=== PATIENT | female | born 1940 | race Caucasian/White ===

== ENCOUNTER 2021-09-11 13:59 | Emergency (ER) | payer MEDICARE, SELFPAY ==
[2021-09-11 14:50] VITALS: BP 107/54; PULSE 85; RESP 18; TEMP 36.1; O2SAT 98; BMI 25.4
--- NOTE | 2021-09-11 15:36 | ECG_ITS ---
Test Reason : WEAKNESS Blood Pressure : / mmHG Vent. Rate : 075 BPM Atrial Rate : 075 BPM P-R Int : 154 ms QRS Dur : 074 ms QT Int : 380 ms P-R-T Axes : 058 054 073 degrees QTc Int : 424 ms Normal sinus rhythm Nonspecific ST abnormality Abnormal ECG Heart rate has increased ST more depressed Lateral leads Referred By: Generic ED Physician Electronically Signed By:BABAR TALLEY MD
[2021-09-11 17:17] LABS: MANUAL DIFF FLAG NO
[2021-09-11 17:19] LABS: Basophils Percent Auto 0.4 % (0-2); Eosinophils Percent Auto 0.3 % (0-4); Hematocrit 42.8 % (37.0-47.0); Hemoglobin 14.9 g/dl (12.0-16.0); Imm Gran Abs Auto 0.04 X10*3/uL (0.00-0.03); Imm Gran Pct Auto 0.4 % (0.0-0.4); Lymphocytes Absolute Auto 2.2 X10*3/uL (1.2-4.9); Lymphocytes Percent Auto 23.8 % (20-40); Mean Corpuscular HGB Conc 34.8 g/dl (31.0-35.0); Mean Corpuscular Hemoglobin 35.1 pg (27.0-33.0); Mean Corpuscular Volume 100.7 fL (80.0-98.0); Mean Platelet Volume 10.6 fL (9.4-12.3); Monocytes Absolute Auto 0.7 X10*3/uL (0.1-1.2); Neutrophils Absolute Auto 6.09 x10*3/uL (2.0-8.3); Neutrophils Percent Auto 67.1 % (45-73); Platelet Count 158 X10*3/uL (160-400); Red Blood Count 4.25 X10*6/uL (4.20-5.50); White Blood Count 9.1 X10*3/uL (4.8-10.8)
[2021-09-11 17:27] LABS: INTERNATIONAL NORM RATIO 0.9 (0.9-1.1); Prothrombin Time 10.4 SEC (9.9-13.0)
[2021-09-11 17:48] LABS: Anion Gap 13 (12-20); Blood Urea Nitrogen 15 mg/dL (9-16); Calcium 8.9 mg/dL (8.4-10.2); Carbon Dioxide 22 mmol/L (22-29); Chloride 103 mmol/L (96-108); Creatinine Clr Calc Pharmacy 31.9; Estimated Glomerular Filt Rate 47; Glucose Random 96 mg/dL (60-115); Potassium 4.7 mmol/L (3.3-5.1); Sodium 133 mmol/L (135-145)
[2021-09-11 17:53] LABS: B Type Natriuretic Peptide 540 pg/mL (<100)
== END 2021-09-11 18:39 | disposition left against medical advice (07) ==
PROVIDERS: Emergency Provider Emergency Medicine; PCP Pediatrics
DX: R53.1 Weakness (principal); R51.9 Headache, unspecified; R10.9 Unspecified abdominal pain
CPT/HCPCS: 36415; 80048; 83880; 85025; 85610; 93005; 99283